=== PATIENT | female | born 1940 | race Caucasian/White ===

== ENCOUNTER 2023-03-03 06:02 | Observation (INO) | payer OTHER ==
[2023-01-22 10:09] LABS: Absolute Lymphocytes (CBC) 3.4 K/uL (0.7-4.9); Hematocrit 43.7 % (36.0-45.0); Lymphocytes % 37.9 % (15.3-44.8); MCV 90.9 fL (80-100); MPV 7.5 fL (7.6-11.3); Platelets 290 thou/uL (152-406); RBC Red Blood Cell Count 4.81 M/uL (3.86-4.86)
[2023-01-22 10:13] LABS: Protime INR 1.04
--- NOTE | 2023-01-22 10:22 | RAD REPORT ---
EXAM DESCRIPTION: Shey Hurst And Chantel (2 Views)01/22/2023 9:50 am CLINICAL HISTORY: Preop for knee surgery COMPARISON: 2017 FINDINGS: Mild left basilar lung opacities appear chronic. The lungs appear clear of acute infiltrate. The heart is normal size IMPRESSION: No acute abnormalities displayed
[2023-01-22 10:24] LABS: Potassium 3.8 mEq/L (3.5-5.1)
[2023-01-22 10:51] LABS: Calcium Oxalate Crystals- Ur Few /HPF (None Seen); Specific Gravity 1.019 (1.005-1.030); Urine Bacteria None Seen /HPF (<20); Urine Bilirubin NEGATIVE (Negative); Urine Blood 3+ (OVER) (Negative); Urine Clarity Extremely Turbid (Clear); Urine Color Light-Orange (Yellow); Urine Glucose NEGATIVE (Negative); Urine Mucus 3+ /HPF (None Seen); Urine Protein 1+ (Negative); Urine RBC >50 /HPF (None Seen); Urine Urobilinogen Normal (Normal)
[2023-03-01 09:28] LABS: Absolute Lymphocytes (CBC) 3.4 K/uL (0.7-4.9); Hematocrit 41.7 % (36.0-45.0); Lymphocytes % 43.1 % (15.3-44.8); MCV 90.6 fL (80-100); MPV 7.3 fL (7.6-11.3); Platelets 266 thou/uL (152-406); RBC Red Blood Cell Count 4.61 M/uL (3.86-4.86)
[2023-03-01 09:32] LABS: Protime INR 0.97
[2023-03-03] MEDS ORDERED: propofoL 200 MG/20 ML VIAL IV ONE (06:23)
[2023-03-03] MEDS ORDERED: KETAMINE HCL IN 0.9 % NACL 50 MG/5 ML SYRINGE IV ONE (06:23)
[2023-03-03] MEDS ORDERED: FENTANYL CITR 100 MCG/2 ML ONE (06:23)
[2023-03-03] MEDS ORDERED: MIDAZOLAM HCL 2 MG/2 ML INJ ONE (06:23)
[2023-03-03] MEDS ORDERED: LIDOCAINE 2% MPF 5 ML VIAL ONE ×3 (06:23→08:23)
[2023-03-03] MEDS ORDERED: ONDANSETRON 4 MG/2 ML VIAL ONE (06:24)
[2023-03-03] MEDS ORDERED: EPINEPHRINE/PF 1 MG/ML AMP ONE (06:30)
[2023-03-03] MEDS ORDERED: dexAMETHasone 4 MG/ML VIAL ONE (06:31)
[2023-03-03] MEDS ORDERED: BUPIVACAINE 0.25% PF 30 ML VIAL ONE ×2 (06:31→07:19)
[2023-03-03] MEDS ORDERED: CEFAZOLIN SODIUM 2 GM/VIAL ONE ×2 (06:33→06:35)
[2023-03-03] MEDS ORDERED: CELECOXIB 100 MG CAPSULE ONE (06:33)
[2023-03-03] MEDS ORDERED: Oxycodone HCl/Acetaminophen 1 TAB TAB ONE (06:34)
[2023-03-03] MEDS ORDERED: GABAPENTIN 100 MG CAP ONE (06:34)
[2023-03-03] MEDS ORDERED: ACETAMINOPHEN 500 MG TAB ONE (06:35)
[2023-03-03] MEDS ORDERED: Ringers Lactate 1,000 ML IV ONE ×2 (06:35→08:53)
[2023-03-03] MEDS ORDERED: DEXMEDETOMIDINE HCL 200 MCG/2 ML VIAL ONE (06:51)
[2023-03-03] MEDS ORDERED: TRANEXAMIC ACID 1,000 MG/10 ML VIAL IV ONE (07:25)
[2023-03-03] MEDS ORDERED: MAGNESIUM SULFATE 1 gm IVPB 1 GM/100 ML BAG IV ONE (08:00)
[2023-03-03] MEDS ORDERED: KETOROLAC 30 MG/ML INJ ONE (09:52)
[2023-03-03] MEDS ORDERED: EPHEDRINE SULF 50 MG/ML VIAL ONE (09:57)
--- NOTE | 2023-03-03 10:37 | P.BOP ---
Preoperative diagnosis: left knee osteoarthritis Postoperative diagnosis: same Primary procedure: left total knee arthroplasty [employer] Lab[employer]: NONE,NONE Estimated blood loss: 40 cc Specimen: left knee bone remnants Findings: see dictation Anesthesia: General Complications: None Implants: [employer] Person[employer] 9 CR femur, E tibia, 29 patella, 11 CR poly Fluids & blood products: per anesthesia record; TT: 71 mins @ 300 mmHg Transferred to: Recovery Room Condition: Good
[2023-03-03] MEDS ORDERED: DOCUSATE NA 100 MG CAP PO PRN (10:40)
[2023-03-03] MEDS ORDERED: ACETAMINOPHEN 325 MG TABLET PO PRN (10:40)
[2023-03-03] MEDS ORDERED: TRAMADOL HCL 50 MG TAB PO PRN (10:44)
[2023-03-03] MEDS: HYDROMORPHONE HCL 1 MG/ML INJ ONE ×2 (11:25→11:30)
--- OUTSIDE RECORDS SUMMARY | 2023-03-03 11:26 | XMS REPORT | Continuity of Care Document ---
:1940 Author Organization [facility] t Address [address] [facility] [address] [place] [address] Care Team Providers Name Role Phone GERHARD MARTINEZ Primary Care Physician Unavailable Gerhard Martinez Attending Clinician Unavailable Malorie Milton Attending Clinician Unavailable Phillip Kent Attending Clinician OLEKSANDR JO Attending Clinician Unavailable Oleksandr Cardenas Attending Clinician LESLEE MCCARTY Attending Clinician Unavailable Leslee Mccarty DO Attending Clinician LESLEE MCCARTY Admitting Clinician Unavailable Payers Payer Name Policy Type Policy Number Effective Date Expiration Date S sariah AET[employer] MANAGED [id number] 2020 MEDICARE 00:00:00 PPO-EULALIO AETNA MEDICARE C1 [id number] 2016 [facility] Spi rit 00:00:00 [facility] Problems Condition Condition Condition Status Onset Resolution Last Treating Co mments Source Name Details Category Date Date Treatment Clinician Date [id number] Primary Problem Comm on osteoarthr Spirit itis of - [facility]I left knee [facility] Cough Cough Problem Active 2022-03-08 Memor ia (finding) (finding) 21:45:29 l Active Kieran Problem 03/08/2022 [facility] Hyperlipid Problem Active 2022-03-08 M jeyria emia Hyperlipid 21:45:29 l (disorder) emia Jose Antonio n (disorder) Active Problem 03/08/2022 [facility] Tinnitus Tinnitus Problem Active 2022-03-08 Memoria (finding) (finding) 21:45:29 l Active [place] Problem 03/08/2022 [facility] Vertigo Vertigo Problem Active 2022-03-08 Me moria (finding) (finding) 21:45:29 l Active [place] Problem 03/08/2022 [facility] Allergies, Adverse Reactions, Alerts Allergy Allergy Status Severity Reaction(s) Onset Inactive Treating Comm ents Source Name Type Date Date Clinician No Known No Known Active Memori a Medicati Medicati l on on [place] Allergie Allergie s s NO KNOWN Drug Active Univers ALLERGIE Class ity of S [facility] Social History Social Habit Start Date Stop Date Quantity Comments Source Exposure to Not sure [facility] SARS-CoV-2 (event) Medica l Branch History of Tobacco [facility] - [facility] Use [facility] Sex Assigned At Common Sp chava - [facility] Social History 2021-04-21 2021-04-21 [facility] Victor Hugo tenorio 15:54:06 15:54:06 Smoking Status Start Date Stop Date Source Unknown if ever smoked [facility] Never Smoker [facility] Medications Ordered Filled Start Stop Current Ordering Indication Dosage Frequency Signature Comments Components Source Medication Medication Date Date Medication? Clinician (SIG) Name Name Kenalog Kenalog No 40mg Common (Triamcinol (Triamcinol 1-05 S pirit one) one) 00:00: - [facility] Bupivicaine Bupivicaine No 2.5mg Common [place] 1-05 Spirit 00:00: - [facility] Naropin Naropin No 5mg Common (Ropivacain (Ropivacain 9-12 S pirit e HCl) e HCl) 00:00: - CHI 00 [facility] Kenalog Kenalog 2021-0 No 40mg Common (Triamcinol (Triamcinol 9-12 S pirit one) one) 00:00: - [facility]I 00 [facility] Naropin Naropin 2021-0 No 5mg Common (Ropivacain (Ropivacain 9-12 S pirit e HCl) e HCl) 00:00: - [facility]I 00 [facility] Kenalog Kenalog 2021-0 No 40mg Common (Triamcinol (Triamcinol 9-12 S pirit one) one) 00:00: - CHI 00 [facility] Bupivicaine Bupivicaine 2021-0 No 2.5mg Common [place] Huddy 5-09 Spirit 00:00: - [facility]I 00 [facility] Kenalog Kenalog 2021-0 No 40mg Common (Triamcinol (Triamcinol 5-09 S pirit one) one) 00:00: - [facility]I 00 [facility] Kenalog Kenalog 2021-0 No 40mg Common (Triamcinol (Triamcinol 5-09 S pirit one) one) 00:00: - [facility]I 00 [facility] Bupivicaine Bupivicaine 2021-0 No 2.5mg Common [place]ud[place] 5-09 Spirit 00:00: - CHI 00 [facility] Kenalog Kenalog 2021-0 No 40mg Common (Triamcinol (Triamcinol 5-09 S pirit one) one) 00:00: - [facility]I 00 [facility] Bupivicaine Bupivicaine 2021-0 No 2.5mg Common [place] 5-09 Spirit 00:00: - CHI 00 [facility] Bupivicaine Bupivicaine 2021-0 No 2.5mg Common [place]dy Huddy 2-03 Spirit 00:00: - [facility]I 00 [facility] Kenalog Kenalog 2021-0 No 40mg Common (Triamcinol (Triamcinol 2-03 S pirit one) one) 00:00: - [facility]I 00 [facility] Bupivicaine Bupivicaine 2022-0 No 2.5mg Common [place] Huddy 2-03 Spirit 00:00: - [facility]I 00 [facility] Kenalog Kenalog 2021-0 No 40mg Common (Triamcinol (Triamcinol 2-03 S pirit one) one) 00:00: - [facility]I 00 [facility] Bupivicaine Bupivicaine 2021-0 No 2.5mg Common [place] Hud[place] 2-03 Spirit 00:00: - [facility]I 00 [facility] Kenalog Kenalog 2021-0 No 40mg Common (Triamcinol (Triamcinol 2-03 S pirit one) one) 00:00: - [facility]I 00 [facility] Kenalog Kenalog 2021-0 No 40mg Common (Triamcinol (Triamcinol 2-03 S pirit one) one) 00:00: - [facility]I 00 [facility] Bupivicaine Bupivicaine 2021-0 No Common [place] Hud[place] 2-03 Spirit 00:00: - [facility] cefTRIAXone 2020-07- No 1000mg 1,000 mg, Univers (ROCEPHIN) 07-11 IV ity of 1,000 mg in 13:15: 12:58 [place], [place] NaCl 0.9% 00 :00 ONCE, 1 Medical (NS) 50 mL dose, On Branc h MINI-BAG [place] 05/11/21 at 0715, Administer over 30 Minutes, 50 mL
Reas on for Anti-Infec tive: Empiric Therapy for Suspected Infection< br>Empiric Therapy Site: Urine
D uration of therapy: 72 hours dexamethaso 2020-07- No 10mg 10 mg, Uni vers ne 07-11 Slow IV ity of (DECADRON 13:00: 11:52 [place], [place] PHOSPHATE) 00 :00 ONCE, 1 Medica l injection dose, On Branch 10 mg [place] 05/11/21 at 0700, Routine ondansetron 2020-07- No 4mg 4 mg, Slow Univers (ZOFRAN 07-11 IV Push, ity of (PF)) 13:00: 11:51 ONCE, 1 [place] injection 4 00 :00 dose, On Medi peter mg [facility] 05/11/21 at 0700, MAKAYLA cephALEXin 2020-07- No [id number] 500mg Take 1 Univers (KEFLEX) 07-11 11-15 capsule by ity of 500 mg 00:00: 05:59 mouth 3 [place] capsule 00 :00 (three) Medical times Branch daily for 7 days. meclizine 2020-07 Yes 25 mg = 1 Mem oria 25 mg oral 1-04 tab, PO, l tablet 15:11: PRN, PRN [place] 00 Dizziness, X 30 day, # 15 tab, 1 Refill(s), [facility]acy: [id number], 165.1, cm, 04/21/21 11:03:00 CDT, Height, 86.818, kg, 04/21/21 11:03:00 CDT, Weight [facility] 2020-07 No 40mg Common (Triamcinol (Triamcinol 0-19 S pirit one) one) 00:00: - [facility] Bupivicaine Bupivicaine 2020-07 No 2.5mg Common H[place]dy Huddy 0-19 Spirit [facility] No 40mg Common (Triamcinol (Triamcinol 0-19 S pirit one) one) 00:00: - [facility] Bupivicaine Bupivicaine 2020-07 No 2.5mg Common [place] Huddy 0-19 Spirit 00:00: - [facility] Kenalog Kenalog 2020-07 No 40mg Common (Triamcinol (Triamcinol 0-19 S pirit one) one) 00:00: - [facility] Bupivicaine Bupivicaine 2020-07 No 2.5mg Common [place] Huddy 0-19 Spirit 00:00: - [facility] Kenalog Kenalog 2020-07 No 40mg Common (Triamcinol (Triamcinol 0-19 S pirit one) one) 00:00: - [facility] Bupivicaine Bupivicaine 2020-07 No Common [place] Huddy 0-19 Spirit 00:00: - [facility] Multiple 2020-07 Yes 1 cap, PO, Mem oria Vitamins 0-18 Daily, # l oral 16:12: 30 cap, 0 [place] capsule 00 Refill(s) Acidophilus 2020-07 Yes PO, Daily, Memoria Probiotic 0-18 0 l Blend 16:11: Refill(s) [place] 00 [place]-3 2020-07 Yes 0 Memoria oral 0-18 Refill(s) l capsule 16:09: [place] 00 Vitamin D3 2020-07 Yes 0 Memoria 0-18 Refill(s) l 16:09: [place] 00 Glucosamine 2020-07 Yes 0 Memori a & 0-18 Refill(s) l Chondroitin 16:08: Jose Antonio n with MSM 00 rosuvastati 2020-07 Yes 10 mg = 1 M emoria n 10 mg 0-18 tab, PO, l oral tablet 16:04: Bedtime, # Kieran 00 30 tab, 0 Refill(s) gemfibrozil 2020-07 Yes 600 mg = 1 Memoria 600 mg oral 0-18 tab, PO, l tablet 16:04: BID, # 180 Taylor nn 00 tab, 0 Refill(s) Bupivicaine Bupivicaine No 2.5mg Common [place] Hud[place] 5-10 Spirit 00:00: - [facility] No 40mg Common (Triamcinol (Triamcinol 5-10 S pirit one) one) 00:00: - [facility] Kenalog No 40mg Common (Triamcinol (Triamcinol 5-10 S pirit one) one) 00:00: - [facility] Bupivicaine Bupivicaine No 2.5mg Common [place]dy Huddy 5-10 Spirit 00:00: - [facility] No 40mg Common (Triamcinol (Triamcinol 5-10 S pirit one) one) 00:00: - [facility] Bupivicaine Bupivicaine 0 No 2.5mg Common [place] Huddy 5-10 Spirit 00:00: - [facility] Bupivicaine Bupivicaine 2021-0 No Common H[place]dy Huddy 5-10 Spirit 00:00: - [facility]I 00 [facility] Kenalog Kenalog 2020-0 No 40mg Common (Triamcinol (Triamcinol 5-10 S pirit one) one) 00:00: - [facility]I 00 [facility] Gel-One Gel-One 2020-0 No 3mg Common 4-29 Spirit 00:00: - [facility]I 00 [facility] Bupivicaine Bupivicaine 2020-0 No 2.5mg Common [place]ud[place] 4-29 Spirit 00:00: - [facility]I 00 [facility] Gel-One Gel-One 2020-0 No 3mg Common 4-29 Spirit 00:00: - [facility]I 00 [facility] Bupivicaine Bupivicaine 2020-0 No 2.5mg Common [place] Hud[place] 4-29 Spirit 00:00: - [facility]I 00 [facility] Gel-One Gel-One 2020-0 No 3mg Common 4-29 Spirit 00:00: - [facility]I 00 [facility] Bupivicaine Bupivicaine 2020-0 No 2.5mg Common [place] Hud[place] 4-29 Spirit 00:00: - [facility]I 00 [facility] Gel-One Gel-One 2020-0 No 3mg Common 4-29 Spirit 00:00: - CHI 00 [facility] Bupivicaine Bupivicaine 2020-0 No Common [place] Hud[place] 4-29 Spirit 00:00: - [facility]I 00 [facility] traMADol traMADol 2020-0 No 1{table traMADol HCl 50 MG HCl 50 MG 3- t_as_ne HCl 50 MG 00:00: eded} 00 traMADol traMADol 2020-0 No 1{table traMADol HCl 50 MG HCl 50 MG 3- t_as_ne HCl 50 MG 00:00: eded} 00 traMADol traMADol 2020-0 No 1{table traMADol HCl 50 MG HCl 50 MG 3-29 t_as_ne HCl 50 MG 00:00: eded} 00 traMADol traMADol 2020-0 No 1{table traMADol HCl 50 MG HCl 50 MG 3-29 t_as_ne HCl 50 MG 00:00: eded} 00 traMADol traMADol 2020-0 No 1{table traMADol HCl 50 MG HCl 50 MG 3-29 t_as_ne HCl 50 MG 00:00: eded} 00 Bupivicaine Bupivicaine 2020-1 No 2.5mg Common [place] 1-10 Spirit 00:00: - [facility]I 00 [facility] Kenalog Kenalog 2020-1 No 40mg Common (Triamcinol (Triamcinol 1-10 S pirit one) one) 00:00: - [facility]I 00 [facility] Bupivicaine Bupivicaine 2020-1 No 2.5mg Common [place] Huddy 1-10 Spirit 00:00: - [facility]I 00 [facility] Kenalog Kenalog 2020-1 No 40mg Common (Triamcinol (Triamcinol 1-10 S pirit one) one) 00:00: - [facility]I 00 [facility] Bupivicaine Bupivicaine 2020-1 No 2.5mg Common [place] Huddy 1-10 Spirit 00:00: - [facility]I 00 [facility] Kenalog Kenalog 2020-1 No 40mg Common (Triamcinol (Triamcinol 1-10 S pirit one) one) 00:00: - [facility]I 00 [facility] Bupivicaine Bupivicaine 2020-1 No Common H[place]dy Huddy 1-10 Spirit 00:00: - CHI 00 [facility] Kenalog Kenalog 2020-1 No 40mg Common (Triamcinol (Triamcinol 1-10 S pirit one) one) 00:00: - [facility]I 00 [facility] Calcium Calcium No Calcium Doxycycline Doxycycline No Doxycyclin Hyclate Hyclate e Hyclate Rosuvastati Rosuvastati No Rosuvastat n Calcium n Calcium in Calcium LORazepam LORazepam No LORazepam Glucosamine Glucosamine No Glucosamin e Vitamin D3 Vitamin D3 No Vitamin D3 Gemfibrozil Gemfibrozil No Gemfibrozi l Rosuvastati Rosuvastati No Rosuvastat n Calcium n Calcium in Calcium Doxycycline Doxycycline No Doxycyclin Hyclate Hyclate e Hyclate [place] 3 [place] 3 No [place] 3 LORazepam LORazepam No LORazepam Calcium Calcium No Calcium Probiotic Probiotic No Probiotic Glucosamine Glucosamine No Glucosamin e [place] 3 [place] 3 No [place] 3 Probiotic Probiotic No Probiotic Rosuvastati Rosuvastati No Rosuvastat n Calcium n Calcium in Calcium Calcium Calcium No Calcium Glucosamine Glucosamine No Glucosamin e Gemfibrozil Gemfibrozil No Gemfibrozi l LORazepam LORazepam No LORazepam Doxycycline Doxycycline No Doxycyclin Hyclate Hyclate e Hyclate Vitamin D3 Vitamin D3 No Vitamin D3 Glucosamine Glucosamine No Glucosamin e Doxycycline Doxycycline No Doxycyclin Hyclate Hyclate e Hyclate Gemfibrozil Gemfibrozil No Gemfibrozi l Vitamin D3 Vitamin D3 No Vitamin D3 Probiotic Probiotic No Probiotic LORazepam LORazepam No LORazepam [place] 3 [place] 3 No [place] 3 Calcium Calcium No Calcium Rosuvastati Rosuvastati No Rosuvastat n Calcium n Calcium in Calcium Glucosamine Glucosamine No Glucosamin e Probiotic Probiotic No Probiotic Calcium Calcium No Calcium Rosuvastati Rosuvastati No Rosuvastat n Calcium n Calcium in Calcium Doxycycline Doxycycline No Doxycyclin Hyclate Hyclate e Hyclate Vitamin D3 Vitamin D3 No Vitamin D3 LORazepam LORazepam No LORazepam [place] 3 [place] 3 No [place] 3 Gemfibrozil Gemfibrozil No Gemfibrozi l Gemfibrozil Gemfibrozil No Gemfibrozi l Vitamin D3 Vitamin D3 No Vitamin D3 Probiotic Probiotic No Probiotic [place] 3 [place] 3 No [place] 3 Immunizations Ordered Immunization Filled Immunization Date Status Commen ts Source Name Name Bupivicaine [place] Bupivicaine Huddy 2021-04-22 Completed [facility] 10:19:00 - [facility] Kenalog Kenkellee 2021-04-22 Completed [facility] (Triamcinolone) (Triamcinolone) 10:19:00 - [facility] Bupivicaine [place]uddy Bupivicaine Huddy 2020-11-11 Completed [facility] 09:03:00 - [facility] Kenalog Kenalog 2020-11-11 Completed [facility] (Triamcinolone) (Triamcinolone) 09:02:00 - [facility] Gel-One Gel-One 2020-10-31 Completed [facility] 11:20:00 - [facility] Bupivicaine Huddy Bupivicaine Huddy 2020-10-31 Completed [facility] 11:16:00 - [facility] Bupivicaine Huddy Bupivicaine Huddy 2020-05-14 Completed [facility] 10:12:00 - [facility] Kenalog Kenalog 2020-05-14 Completed [facility] (Triamcinolone) (Triamcinolone) 10:12:00 - CH I [facility] Vital Signs Vital Name Observation Time Observation Value Comments Source height 2022-07-09 10:00:00 65.5 [in_i] Common S pirit - [facility] weight 2022-07-09 10:00:00 180 [lb_av] Common S pirit [facility] temperature 2022-07-09 10:00:00 97.4 [degF] Common S pirit [facility] bmi 2022-07-09 10:00:00 29.49 kg/m2 Common S pirit - [facility] blood pressure 2022-07-09 10:00:00 118 mm[Hg] [facility] - systolic [facility] blood pressure 2022-07-09 10:00:00 74 mm[Hg] [facility] - diastolic [facility] height 2022-03-16 10:00:00 65.5 [in_i] Common S pirit [facility] weight 2022-03-16 10:00:00 185 [lb_av] Common S pirit [facility] temperature 2022-03-16 10:00:00 98.3 [degF] [facility] bmi 2022-03-16 10:00:00 30.31 kg/m2 Common S pirit [facility] blood pressure 2022-03-16 10:00:00 126 mm[Hg] [facility] - systolic [facility] blood pressure 2022-03-16 10:00:00 64 mm[Hg] [facility] - diastolic [facility] height 2021-11-10 10:30:00 65.5 [in_i] Common S pirit - [facility] weight 2021-11-10 10:30:00 185 [lb_av] Common S pirit [facility] temperature 2021-11-10 10:30:00 97.2 [degF] Common S pirit [facility] bmi 2021-11-10 10:30:00 30.31 kg/m2 Common S pirit - [facility] blood pressure 2021-11-10 10:30:00 124 mm[Hg] [facility] - systolic [facility] blood pressure 2021-11-10 10:30:00 74 mm[Hg] [facility] - diastolic [facility] Systolic blood 2021-08-19 21:00:00 133 mm[Hg] Univer [facility]ity of [facility] Diastolic blood 2021-08-19 21:00:00 61 mm[Hg] Unive rsity of [facility] Heart rate 2021-08-19 21:00:00 65 /min [facility] Respiratory rate 2021-08-19 21:00:00 17 /min [facility] Oxygen saturation in 2021-08-19 21:00:00 99 /min [facility] Arterial blood by [facility] Pulse oximetry [place] Body temperature 2021-08-19 19:25:00 37 Jina [facility] Body weight 2021-08-19 19:25:00 68.04 kg [facility] height 2021-08-07 10:00:00 65.5 [in_i] [facility] weight 2021-08-07 10:00:00 191 [lb_av] [facility] temperature 2021-08-07 10:00:00 97.2 [degF] [facility] bmi 2021-08-07 10:00:00 31.3 kg/m2 Common S pirit [facility] blood pressure 2021-08-07 10:00:00 126 mm[Hg] [facility] - systolic [facility] blood pressure 2021-08-07 10:00:00 74 mm[Hg] [facility] - diastolic [facility] Systolic blood 2021-05-11 12:00:00 120 mm[Hg] Univer [facility] Diastolic blood 2021-05-11 12:00:00 61 mm[Hg] Unive rsity of [facility] Heart rate 2021-05-11 12:00:00 59 /min [facility] Respiratory rate 2021-05-11 12:00:00 10 /min [facility] Oxygen saturation in 2021-05-11 12:00:00 95 /min [facility] Arterial blood by [facility] Pulse oximetry [place] Body temperature 2021-05-11 11:36:00 36.61 Jina [facility] Body weight 2021-05-11 11:27:00 68.04 kg [facility] height 2021-04-22 09:45:00 65.5 [in_i] [facility] weight 2021-04-22 09:45:00 191.2 [lb_av] [facility] temperature 2021-04-22 09:45:00 97.3 [degF] [facility] bmi 2021-04-22 09:45:00 31.33 kg/m2 [facility] blood pressure 2021-04-22 09:45:00 118 mm[Hg] Common [facility] - systolic [facility] blood pressure 2021-04-22 09:45:00 72 mm[Hg] [facility] - diastolic [facility] Systolic (mm Hg) 2021-09-02 15:46:00 Harlan rial [place] Diastolic (mm Hg) 2021-09-02 15:46:00 Mem orial Kieran Heart Rate 2021-09-02 15:46:00 [facility] Kieran Respitory Rate 2021-09-02 15:46:00 Memori al [place]ieran Height 2021-09-02 15:46:00 162[facility] 2021-09-02 15:46:00 [facility] [place] BMI Calculated 2021-09-02 15:46:00 Memori al [place] Systolic (mm Hg) 2021-05-20 15:49:00 Harlan rial Kieran Diastolic (mm Hg) 2021-05-20 15:49:00 Mem orial Kieran Heart Rate 2021-05-20 15:49:00 [facility] [place] Respitory Rate 2021-05-20 15:49:00 Memori al Kieran Height 2021-05-20 15:49:00 162.56 cm [facility] [place] Weight 2021-05-20 15:49:00 [facility] [place]ieran BMI Calculated 2021-05-20 15:49:00 Nedraori al [place] Systolic (mm Hg) 2021-04-21 15:50:00 Harlan guadarrama Kieran Diastolic (mm Hg) 2021-04-21 15:50:00 Mem orial [place] Heart Rate 2021-04-21 15:50:00 [facility] [place] Respitory Rate 2021-04-21 15:50:00 Memori al Kieran Height 2021-04-21 15:50:00 165.1 cm [facility] [place] Weight 2021-04-21 15:50:00 [facility] [place] BMI Calculated 2021-04-21 15:50:00 Slava al [place]ieran Procedures Procedure Date / Time Performing Clinician Source Performed TROPONIN I 2021-08-19 20:36:00 Oleksandr Jo [facility] COMP. METABOLIC PANEL 2021-08-19 20:36:00 Oleksandr Jo [facility] ([id number]) [facility] Branch CBC WITH DIFF 2021-08-19 20:36:00 Oleksandr Jo [facility] URINALYSIS 2021-08-19 20:32:00 [facility] CONSENT/REFUSAL FOR 2021-08-19 19:24:57 Doctor Unassigned, No Un [facility] DIAGNOSIS AND TREATMENT Name Medical Branch OR RESUPERF WND FACE 2021-05-11 12:43:02 Leslee Mccarty [facility] 2.5CM OR LESS [facility] Branch XR CHEST 1 VW 2021-05-11 12:24:44 Singer Leslee [facility] CT HEAD WO CONTRAST 2021-05-11 12:24:10 Leslee Mccarty [facility] TROPONIN I 2021-05-11 11:43:00 Singer Lelsee [facility] COMP. METABOLIC PANEL 2021-05-11 11:43:00 Leslee Mccarty [facility] ([id number]) [facility] CBC WITH DIFF 2021-05-11 11:43:00 Singer Leslee [facility] URINALYSIS 2021-05-11 11:43:00 Leslee Mccarty o f [facility] Gallbladder operation [facility] Encounters Start End Encounter Admission Attending Care Care Encounter Source Date/Time Date/Time Type Type Clinicians Facility Department ID 2023-01-27 Outpatient Martinez, STLMLC STLMLC [id number] Common 14:07:00 [facility] [address] Spir [facility] 2022-11-13 Outpatient Martinez, STLMLC STLMLC [id number] Common 09:18:00 [facility] [address] Spir it [facility] 2022-11-12 Outpatient Pima, STLMLC STLMLC [id number] Common 14:36:01 Malorie [facility] 2022-07-09 Outpatient [place], STLMLC STLMLC [id number] Common 16:40:01 Malorie [address] [facility] 2022-03-16 Outpatient [place], STLMLC STLMLC [id number] Common 11:54:01 Malorie [facility] 2021-08-07 Outpatient [place], STLMLC STLMLC [id number] Common 10:03:01 Malorie [facility] 2021-07-30 Outpatient [place], STLMLC STLMLC [id number] Common 13:01:42 Malorie 08507 [facility] 2021-07-30 Outpatient [place], STLMLC STLMLC [id number] Common 13:01:07 Malorie 57275 [facility] 2021-07-30 Outpatient [place], STLMLC STLMLC [id number] Common 12:58:52 Malorie 15839 [facility] 2021-07-30 Outpatient [place]ima, STLMLC STLMLC [id number] Common 12:57:01 Malorie 35447 [facility] 2021-07-30 Outpatient [place], STLMLC STLMLC [id number] Common 12:52:41 Malorie 09759 [facility] 2021-07-30 Outpatient [place], STLMLC STLMLC [id number] Common 12:03:38 Malorie [address] [facility] 2022-07-09 2022-07-09 OFFICE STLMLC STLMLC [id number] Co mmon 00:00:00 00:00:00 VISIT Spirit ESTAB PT - CHI LEVEL 4 [facility] 2022-03-16 2022-03-16 OFFICE STLMLC STLMLC [id number] Co mmon 00:00:00 00:00:00 VISIT Spirit ESTAB PT - CHI LEVEL 4 [facility] 2022-03-06 2022-03-06 Ambulatory nullFlavo MNA [id number] Memoria 15:00:00 15:00:00 Pre-Reg r Neurology 05 l Baltazar Alcaraz 2022-03-06 2022-03-06 Outpatient MHIE MHIE [id number] Memoria 10:00:00 10:00:00 05 valencia Kieran 2022-03-06 2022-03-06 Outpatient VEE KentMISCHER MHMISCHER [id number] 10:00:00 10:00:00 Phillip Cheryl Cezar 2021-11-10 2021-11-10 OFFICE STLMLC STLMLC [id number] Co mmon 00:00:00 00:00:00 VISIT Spirit ESTAB PT - CHI LEVEL 4 [facility] 2021-09-02 2021-09-03 Outpatient nullFlavo MNA [id number] Memoria 16:15:00 05:59:59 r Neurology 04 l Harvey Kieran 2021-09-02 2021-09-02 Outpatient VEE KentMISCHER MHMISCHER [id number] 10:15:00 23:59:59 Phillip Kay Cezar 2021-09-02 2021-09-02 Outpatient MHIE MHIE [id number] Memoria 10:15:00 10:15:00 04 valencia Kieran 2021-08-19 2021-08-19 Emergency X DEYSI TXDIO ERT [id number] Univers 13:27:00 17:02:[address] [facility] 2021-08-19 2021-08-19 Emergency Deysi TXDIO [id number] [facility] 13:27:00 17:02:00 Oleksandr ANNE [id number] [facility] [id number] [facility] [id number] [address] 2021-08-07 2021-08-07 [facility] [id number] Co mmon 00:00:00 00:00:00 VISIT Spirit ESTAB PT - CHI LEVEL 4 [facility] 2021-05-20 2021-05-21 Outpatient nullFlavo MNA [id number] Memoria 16:00:00 05:59:59 r Neurology 02 l Harvey Kieran 2021-05-20 2021-05-20 Outpatient Donte MHMISCHER MHMISCHER 004 [id number] 10:00:00 23:59:59 Phillip 02 Cezar 2021-05-20 2021-05-20 Outpatient MHIE MHIE [id number] Memoria 10:00:00 10:00:00 02 valencia Alcaraz 2021-05-11 2021-05-11 Emergency [facility] E[facility] [id number] [facility] 05:20:00 08:09:[address] [facility] 2021-05-11 2021-05-11 [facility] [id number] Univers 05:20:00 08:09:00 Leslee ANNE 350.1.13.10 i ty of [place] 4.2.7.2.686 [facility] [id number] [address] 2021-05-08 2021-05-09 Outpatient nullFlavo MNA [id number] Memoria 14:45:00 04:59:59 r Neurology 03 valencia Alcaraz 2021-05-08 2021-05-08 Outpatient VEE KentMISCHER MHMISCHER [id number] 09:45:00 23:59:59 Phillip 03 Cezar 2021-05-08 2021-05-08 Outpatient MHIE MHIE [id number] Memoria 09:45:00 09:45:00 03 valencia Alcaraz 2021-04-25 2021-04-25 Ambulatory nullFlavo MNA [id number] Memoria 15:45:00 15:45:00 Pre-Reg r Neurology 00 l Baltazar Alcaraz 2021-04-25 2021-04-25 Outpatient MHIE MHIE [id number] Memoria 10:45:00 10:45:00 00 valencia Alcaraz 2021-04-25 2021-04-25 Outpatient DonteVEEMISCHER MHMISCHER [id number] 10:45:00 10:45:00 Phillip 00 Cezar 2021-04-21 2021-04-22 Outpatient nullFlavo MNA [id number] Memoria 15:45:00 04:59:59 r Neurology 01 valencia Alcaraz 2021-04-22 2021-04-22 OFFICE STLMLC STLMLC [id number] Co mmon 00:00:00 00:00:00 VISIT [facility] 4 [facility] 2021-04-21 2021-04-21 Outpatient Donte, MHMISCHER MHMISCHER [id number] 10:45:00 23:59:59 Phillip Cezar 2021-04-21 2021-04-21 Outpatient MHIE MHIE [id number] Memoria 10:45:00 10:45:00 01 valencia Alcaraz 2021-01-14 2021-01-14 Outpatient STLMLC STLMLC [id number] Common 00:00:00 00:00:00 [facility] 2020-11-12 2020-11-12 Outpatient STLMLC STLMLC [id number] Common 00:00:00 00:00:00 [facility] 2020-11-11 2020-11-11 Outpatient STLMLC STLMLC [id number] Common 00:00:00 00:00:00 [facility] 2020-11-11 2020-11-11 Outpatient STLMLC STLMLC [id number] Common 00:00:00 00:00:00 [facility] 2020-11-04 2020-11-04 Outpatient STLMLC STLMLC [id number] Common 00:00:00 00:00:00 [facility] 2020-10-31 2020-10-31 Outpatient STLMLC STLMLC [id number] Common 00:00:00 00:00:00 [facility] 2020-10-07 2020-10-07 Outpatient STLC STLC [id number] Common 00:00:00 00:00:00 [facility] 2020-09-30 2020-09-30 Outpatient STLC STLC [id number] Common 00:00:00 00:00:00 [facility] 2020-09-30 2020-09-30 Outpatient STLC STLC [id number] Common 00:00:00 00:00:00 [facility] 2020-05-14 2020-05-14 Outpatient STLC STLC [id number] Common 00:00:00 00:00:00 [facility] Results Test Description Test Time Test Comments Results Result Comments Source CBC WITH DIFF 2021-08-19 21:29:13 Test Item Value Reference Range Interpretation Comme nts WBC (test code = 6690-2) See_Comment [A utomated message] The system which ge nerated this result transmit aj reference range: 4.30 - 1 1.10 10*3/?L. The reference r luis was not used to interpr et this result as normal/abnor mal. RBC (test code = 789-8) See_Comment [Au tomated message] The system which ge nerated this result transmit aj reference range: 3.93 - 5 .25 10*6/?L. The reference r luis was not used to interpr et this result as normal/abnor mal. HGB (test code = 718-7) 14.5 g/dL 11.6-15.0 HCT (test code = 4544-3) 42.2 % 35.7-45.2 MCV (test code = 787-2) 91.3 fL 80.6-95.5 MCH (test code = 785-6) 31.4 pg 25.9-32.8 MCHC (test code = 786-4) 34.4 g/dL 31.6-35.1 RDW-SD (test code = 63881-1) 38.8 fL 39.0-49.9 L RDW-CV (test code = 788-0) 11.6 % 12.0-15.5 L PLT (test code = 777-3) See_Comment [Au tomated message] The system which ge nerated this result transmit aj reference range: 166 - 35 8 10*3/?L. The reference range was not used to interpret th is result as normal/abnormal . MPV (test code = 40590-0) 9.5 fL 9.5-12.9 NRBC/100 WBC (test code = See_Comment [ Automated message] The 3075653425) system which ge nerated this result transmit aj reference range: 0.0 - 10 .0 /100 WBCs. The reference r luis was not used to interpr et this result as normal/abnor mal. NRBC x10^3 (test code = <0.01 See_Comment [Au tomated message] The 4518065763) system which ge nerated this result transmit aj reference range: 10*3/?L. The reference range was not u sed to interpret this result as normal/abnormal . GRAN MAT (NEUT) % (test code 43.1 % = 770-8) IMM GRAN % (test code = 0.10 % 4808779042) LYMPH % (test code = 736-9) 46.7 % MONO % (test code = 5905-5) 6.6 % EOS % (test code = 713-8) 3.3 % BASO % (test code = 706-2) 0.2 % GRAN MAT x10^3(ANC) (test 3.73 10*3/uL 1.88-7.09 code = 1499067316) IMM GRAN x10^3 (test code = <0.03 0.00-0.06 8291669872) LYMPH x10^3 (test code = 4.04 10*3/uL 1.32-3.29 H 731-0) MONO x10^3 (test code = 0.57 10*3/uL 0.33-0.92 742-7) EOS x10^3 (test code = 0.29 10*3/uL 0.03-0.39 711-2) BASO x10^3 (test code = <0.03 0.01-0.07 704-7) Lab Interpretation (test Abnormal code = 63735-8) [id number]45 Test Item Value Reference Interpretation Comments Range TROPONIN I (test 0.002 ng/mL See_Comment [Automated code = 4966530286) message] The system which generated this result transmitted reference range : <=0.034. The reference range was not used to interpret this result as normal/abnormal . HIRA (test code = Reference (Normal) HIRA) Range (defined by the 99th percentile reference limit): <= 0.034 ng/mL Note: Cardiac troponin begins to rise 3-4 hours after the onset of ischemia. Repeat in 4-6 hours if the sample was drawn within 3-4 hours of the onset of the symptom and found normal. Diagnosis of myocardial injury is made with acute changes in cTn concentrations with at least one serial sample above the 99th percentile upper reference limit (URL), taken together with the patient's clinical presentation. Biotin has been reported to cause a negative bias, interpret results relative to patient's use of biotin. Lab Interpretation Normal (test code = 93476-5) [facility]. METABOLIC PANEL ([id number])2021-08-19 20:58:22 Test Item Value Reference Range Interpretation Comments NA (test code = 139 mmol/L 135-145 1523712727) K (test code = 4.0 mmol/L 3.5-5.0 7962631303) CL (test code = 107 mmol/L 98-108 7253730683) CO2 TOTAL (test code = 29 mmol/L 23-31 5039737631) AGAP (test code = 2-16 8615667150) BUN (test code = 15 mg/dL 7-23 6474462570) GLUCOSE (test code = 108 mg/dL 70-110 4430931781) CREATININE (test code = 1.22 mg/dL 0.50-1.04 H 2739541120) TOTAL BILI (test code = 0.7 mg/dL 0.1-1.3 5914912084) CALCIUM (test code = 9.3 mg/dL 8.6-10.6 2095573823) T PROTEIN (test code = 7.1 g/dL 6.3-8.2 9510147934) ALBUMIN (test code = 4.4 g/dL 3.5-5.0 0369387987) ALK PHOS (test code = 81 U/L 34-122 0238329454) ALTv (test code = 21 U/L 1742-6) AST(SGOT) (test code = 33 U/L 13-40 0218183828) eGFR (test code = mL/min/1.73m2 6870456368) HIRA (test code = HIRA) Association of Glomerular Filtration Rate (GFR) and Staging of Kidney Disease* + --+ --+ ------+| GFR (mL/min/1.73 m2) ?| With Kidney Damage ?| ?Without Kidney Damage+ --------+ --------+ +| ?>90 ?| ?Stage one ?| ? Normal ?+ ---+ ---+ -------+| ?60-89 ?| ?Stage two ?| ? Decreased GFR ? + --+ --+ ------+| ?30-59 ?| ?Stage three ?| ? Stage three ? + --+ --+ ------+| ?15-29 ?| ?Stage four ? | ? Stage four ?+ ---+ ---+ -------+| ?<15 (or dialysis) ? ?| ?Stage five ? | ? Stage five ?+ ---+ ---+ -------+ *Each stage assumes the associated GFR level has been in effect for at least three months. ?Stages 1 to 5, with or without kidney disease, indicate chronic kidney disease. Notes: Determination of stages one and two (with eGFR >59mL/min/1.73 m2) requires estimation of kidney damage for at least three months as defined by structural or functional abnormalities of the kidney, manifested by either:Pathological abnormalities or Markers of kidney damage (including abnormalities in the composition of the blood or urine or abnormalities in imaging tests). Lab Interpretation Abnormal (test code = 40613-7) [id number] 12:35:46 Test Item Value Reference Interpretation Comments Range TROPONIN I (test <0.012 See_Comment [Automated code = 8657566466) message] The system which generated this result transmitted reference range : <=0.034 ng/mL. The reference range was not used to interpret this result as normal/abnormal . HIRA (test code = Reference (Normal) HIRA) Range (defined by the 99th percentile reference limit): <= 0.034 ng/mL Note: Cardiac troponin begins to rise 3-4 hours after the onset of ischemia. Repeat in 4-6 hours if the sample was drawn within 3-4 hours of the onset of the symptom and found normal. Diagnosis of myocardial injury is made with acute changes in cTn concentrations with at least one serial sample above the 99th percentile upper reference limit (URL), taken together with the patient's clinical presentation. Biotin has been reported to cause a negative bias, interpret results relative to patient's use of biotin. Lab Interpretation Normal (test code = 18982-2) [facility]. METABOLIC PANEL ([id number])2021-05-11 12:23:43 Test Item Value Reference Range Interpretation Comments NA (test code = 140 mmol/L 135-145 7753458619) K (test code = 4.2 mmol/L 3.5-5.0 7459179119) CL (test code = 105 mmol/L 98-108 2080972716) CO2 TOTAL (test code = 29 mmol/L 23-31 9588365968) AGAP (test code = 2-16 6149997981) BUN (test code = 12 mg/dL 7-23 4696627226) GLUCOSE (test code = 114 mg/dL 70-110 H 4236514708) CREATININE (test code = 0.94 mg/dL 0.50-1.04 1336668780) TOTAL BILI (test code = 0.9 mg/dL 0.1-1.1 7603655266) CALCIUM (test code = 9.9 mg/dL 8.6-10.6 3621456056) T PROTEIN (test code = 7.4 g/dL 6.3-8.2 5716585850) ALBUMIN (test code = 4.4 g/dL 3.5-5.0 6357355665) ALK PHOS (test code = 80 U/L 34-122 0713003816) ALTv (test code = 25 U/L 5-35 1742-6) AST(SGOT) (test code = 31 U/L 13-40 3836355480) eGFR (test code = mL/min/1.73m2 2349027645) HIRA (test code = HIRA) Association of Glomerular Filtration Rate (GFR) and Staging of Kidney Disease* + --+ --+ ------+| GFR (mL/min/1.73 m2) ?| With Kidney Damage ?| ?Without Kidney Damage+ --------+ --------+ +| ?>90 ?| ?Stage one ?| ? Normal ?+ ---+ ---+ -------+| ?60-89 ?| ?Stage two ?| ? Decreased GFR ? + --+ --+ ------+| ?30-59 ?| ?Stage three ?| ? Stage three ? + --+ --+ ------+| ?15-29 ?| ?Stage four ? | ? Stage four ?+ ---+ ---+ -------+| ?<15 (or dialysis) ? ?| ?Stage five ? | ? Stage five ?+ ---+ ---+ -------+ *Each stage assumes the associated GFR level has been in effect for at least three months. ?Stages 1 to 5, with or without kidney disease, indicate chronic kidney disease. Notes: Determination of stages one and two (with eGFR >59mL/min/1.73 m2) requires estimation of kidney damage for at least three months as defined by structural or functional abnormalities of the kidney, manifested by either:Pathological abnormalities or Markers of kidney damage (including abnormalities in the composition of the blood or urine or abnormalities in imaging tests). Lab Interpretation Abnormal (test code = 90886-8) [facility] WITH [id number] 11:50:23 Test Item Value Reference Range Interpretation Comments WBC (test code = See_Comment H [Automated 1731-2) message] The sy stem which generated this result transmitted reference range : 4.30 - 11.10 10*3/?L. The reference range was not used to interpret this result as normal/abnormal . RBC (test code = See_Comment [Automated 174-8) message] The sy stem which generated this result transmitted reference range : 3.93 - 5.25 10*6/?L. The reference range was not used to interpret this result as normal/abnormal . HGB (test code = 15.0 g/dL 11.6-15.0 718-7) HCT (test code = 43.9 % 35.7-45.2 4544-3) MCV (test code = 92.2 fL 80.6-95.5 787-2) MCH (test code = 31.5 pg 25.9-32.8 785-6) MCHC (test code = 34.2 g/dL 31.6-35.1 786-4) RDW-SD (test code = 39.7 fL 39.0-49.9 21774-1) RDW-CV (test code = 11.7 % 12.0-15.5 L 788-0) PLT (test code = See_Comment [Automated 777-3) message] The sy stem which generated this result transmitted reference range : 166 - 358 10*3/ ?L. The reference r luis was not used to interpret this result as normal/abnormal . MPV (test code = 9.4 fL 9.5-12.9 L 56099-2) NRBC/100 WBC (test See_Comment [Automat ed code = 2558034810) message] The system which generated this result transmitted reference range : 0.0 - 10.0 /100 WBCs. The refer ence range was not u sed to interpret th is result as normal/abnormal . NRBC x10^3 (test code <0.01 See_Comment [Auto mated = 0811068905) message] The s ystem which generated this result transmitted reference range : 10*3/?L. The reference range was not used to interpret this result as normal/abnormal . GRAN MAT (NEUT) % 73.9 % (test code = 770-8) IMM GRAN % (test code 0.30 % = 0236668880) LYMPH % (test code = 19.2 % 736-9) MONO % (test code = 5.6 % 5905-5) EOS % (test code = 0.7 % 713-8) BASO % (test code = 0.3 % 706-2) GRAN MAT x10^3(ANC) 8.66 10*3/uL 1.88-7.09 H (test code = 1071750201) IMM GRAN x10^3 (test 0.04 10*3/uL 0.00-0.06 code = 6155630386) LYMPH x10^3 (test code 2.25 10*3/uL 1.32-3.29 = 731-0) MONO x10^3 (test code 0.65 10*3/uL 0.33-0.92 = 742-7) EOS x10^3 (test code = 0.08 10*3/uL 0.03-0.39 711-2) BASO x10^3 (test code 0.03 10*3/uL 0.01-0.07 = 704-7) Lab Interpretation Abnormal (test code = 39430-8) [facility]"
--- NOTE | 2023-03-03 11:31 | RAD REPORT ---
EXAM DESCRIPTION: RAD - Knee Left 2 View - 03/03/2023 10:58 am CLINICAL HISTORY: Post Op COMPARISON: No comparisons TECHNIQUE: Left knee, 2 views. FINDINGS: A left total knee arthroplasty has been performed. Hardware is in expected location. Skin christine are noted. IMPRESSION: Postoperative left knee with no unexpected finding.
[2023-03-03 11:40] VITALS: O2SAT 94
[2023-03-03 13:04] VITALS: BMI 31.4
[2023-03-03] MEDS: CEFAZOLIN SODIUM 2 GM in NA CHLORIDE 0.9% 100 ML IVPB SCH (17:22)
[2023-03-03] MEDS: MECLIZINE HCL 12.5 MG TAB PO SCH (18:08)
[2023-03-03] MEDS: gemfibroziL 600 MG TAB PO SCH (20:16)
[2023-03-03] MEDS: ONDANSETRON 4 MG/2 ML VIAL IV PRN (20:24)
--- NOTE | 2023-03-03 21:28 | P.OP ---
Preoperative diagnosis: left knee osteoarthritis Postoperative diagnosis: same Primary procedure: left total knee arthroplasty Anesthesia: general Estimated blood loss: 40 cc Specimen: left knee bone remnants Findings: see dictation Operative Technique: Indication For Procedure: Patient is an 82 year-old female presenting to my clinic with signs, symptoms and x-ray findings consistent with severe left knee osteoarthritis. I discussed with the patient at length risks and benefits associated with operative and nonoperative treatment. She had failed conservative treatment measures and had significant difficulties with ADLs secondary to her pain. We discussed operative treatment and elected to proceed with left total knee arthroplasty. She expressed understanding and elected to proceed with operative treatment. Description Of Procedure: After informed consent was obtained, the patient was identified in the preoperative holding area. The left lower extremity was marke d. The patient was then taken to the PACU where she underwent a left lower extremity adductor canal block performed by Anesthesia. She was then taken to the operating room, transferred to the operating table in supine fashion, and placed under general anesthesia. The left lower extremity was then prepped and draped in usual sterile fashion. A time-out was initiated. The correct patient and procedure were confirmed and identified. The patient did receive her preoperative prophylactic antibiotics. The left lower extremity was then exsanguinated and tourniquet was inflated to 300 mmHg. Approximately 15 cm longitudinal incision was made centered over the anterior aspect of the left knee. Dissection was then taken to the extensor mechanism and a medial parapatellar arthrotomy was performed. The patella was everted and dislocated laterally and the knee was flexed in the fat pad. Medial and lateral meniscus and ACL were all excised exposing the distal femur. Excess hypertrophic sy novium was also excised within the suprapatellar pouch. The patient had an MRI of her left knee preoperatively for surgical planning and creation of cutting blocks. The cutting block was then placed over the distal femur and pins were then placed. The distal femoral cutting block was then placed over the pins. An adal wing was then used to ensure proper depth cut and the distal femur was then cut. The chamfer cutting guide was then placed over the distal end of the femur. Anterior, posterior cuts as well as anterior and posterior chamfer cuts were then made again confirming proper depth of the cut using an Adal wing. Excess bone remnants were then sent to pathology for further evaluation. Next, attention was taken to the proximal tibia. A tibial jig and tibial cutting block was then placed on proximal aspect of the left tibia and locked into position. Pins were then placed and alignment guide was then used to confirm proper alignment of the cut and then coronal and sagittal planes. Once this was confirmed, the cutting jig was placed over the pins and the proximal tibia was cut. Sizing trays were then selected and size 10 mm spacer was used and there was good overall balance in flexion and extension. Next, the trial implants were then placed using the size 9 standard CR femur and a size E tibia and an 11 mm CR poly. There was overall good range of motion and good stability. The trial implants were then removed. The wound was then irrigated thoroughly with normal saline and the knee was then injected with 30 cc of 0.5% Marcaine both in the posterior capsule and medial and lateral gutters as well as quadriceps tendon and periosteum. The tibia was then punched. The femur was drilled. The cement was then prepared on the back table. Cement was then placed first on the tibial surface followed by size E tibia. Excess cement was removed with Diablo elevators. Size 7 standard CR femur was then placed on the distal femur after cement was placed on the distal femur. Excess cement was then removed and a size 11 mm CR trial poly was then placed. The knee was held in extension as the cement hardened. Undersurface of the patella was prepared debriding osteophytes using rongeurs as well as osteophytes.. Cement was placed on the undersurface of the patella after it was cut and a size 29 patella was placed. Once the cement was hardened, the knee was ranged, there was good overall stability both in flexion, extension and as well as stability with varus and valgus stresses. Trial poly was then removed and a size 11 mm CR poly was then placed and locked into position. The knee was then ranged again. There was good overall range of motion both for flexion and extension with good stability. The wound was then irrigated again thoroughly with normal saline using pulse lavage. Tourniquet was let down. Hemostasis was achieved using Bovie electrocautery. Extensor mechanism was then approximated using a #1 Vicryl both in interrupted and run clementina fashion. The fascia was then approximated using 0 Vicryl. Subcutaneous tissue was approximated with a 2-0 Vicryl. Skin was approximated using christine. Sterile dressings were applied. The patient was awakened and transferred to PACU in stable condition Complications: None Implants: Biomet Nato Persona 9 CR femur, E tibia, 29 patella, 11 CR femur Fluids & blood products: per anesthesia record; TT: 71 mins @ 300 mmHg Transferred to: Recovery Room Condition: Good
[2023-03-03] MEDS: HYDROCODONE/APAP 7.5/325 MG TAB PO PRN (22:42)
[2023-03-04] MEDS: CEFAZOLIN SODIUM 2 GM in NA CHLORIDE 0.9% 100 ML IVPB SCH ×2 (00:36→08:11)
[2023-03-04] MEDS: ENOXAPARIN 30 MG/0.3 ML SQ SCH ×2 (06:12→18:18)
[2023-03-04 06:33] LABS: Hematocrit 36.2 % (36.0-45.0)
[2023-03-04] MEDS: HYDROCODONE/APAP 7.5/325 MG TAB PO PRN ×3 (08:10→23:43)
[2023-03-04] MEDS: gemfibroziL 600 MG TAB PO SCH ×2 (08:10→20:07)
[2023-03-04] MEDS: VITAMIN D 1000 UNIT TAB PO SCH (08:11)
[2023-03-04] MEDS: CELECOXIB 100 MG CAPSULE PO SCH (08:11)
[2023-03-04] MEDS: ROSUVASTATIN 10 MG TAB PO SCH (08:13)
[2023-03-04] MEDS: CALCIUM CARBONATE 500 MG TAB PO SCH (09:00)
[2023-03-04] MEDS ORDERED: MECLIZINE HCL 12.5 MG TAB PO ONE (09:40)
[2023-03-04] MEDS: ONDANSETRON 4 MG/2 ML VIAL IV PRN (10:09)
[2023-03-04] MEDS ORDERED: DOCUSATE NA 100 MG CAP PO ONE (13:05)
--- NOTE | 2023-03-04 16:09 | P.PN ---
Subjective Date of Service: 03/04/23 Chief Complaint: Status post left total knee arthroplasty Patient reports some vertigo and dizziness making it difficult to get out of bed yesterday and this morning. Reports minimal pain with the left knee at this time. Physical Examination - Vital Signs Temperature: 99.0 F Blood Pressure: 108/57 Pulse: 64 Respirations: 16 Pulse Ox (%): 90 - Physical Exam General: Alert, In no apparent distress Musculoskeletal: Other (LLE: Dressing with minimal sanguinous drainage; neurovascular intact distally) - Studies Laboratory Data (last 24 hrs) 03/04/23 06:19 Hgb 12.8 D Hct 36.2 Assessment And Plan - Plan Angie is an 82-year-old female status post left total knee arthroplasty postop day #1 -Patient is having vertigo causing difficulty with mobilization; continue meclizine and Zofran as needed -Lovenox for DVT prophylaxis -Awaiting inpatient rehab evaluation and possible approval -Continue to work with physical therapy for improved mobilization for safe discharge as patient lives alone
[2023-03-04] MEDS: MECLIZINE HCL 12.5 MG TAB PO SCH (18:20)
[2023-03-05 04:38] VITALS: BP 132/55; TEMP 98.2
[2023-03-05 06:22] LABS: Hematocrit 34.6 % (36.0-45.0)
[2023-03-05] MEDS: HYDROCODONE/APAP 7.5/325 MG TAB PO PRN (06:23)
[2023-03-05] MEDS: ENOXAPARIN 30 MG/0.3 ML SQ SCH (06:23)
[2023-03-05] MEDS: CELECOXIB 100 MG CAPSULE PO SCH (08:04)
[2023-03-05] MEDS: VITAMIN D 1000 UNIT TAB PO SCH (08:05)
[2023-03-05] MEDS: ROSUVASTATIN 10 MG TAB PO SCH (08:05)
[2023-03-05] MEDS: CALCIUM CARBONATE 500 MG TAB PO SCH (08:06)
--- NOTE | 2023-03-05 08:10 | P.PN ---
Subjective Date of Service: 03/05/23 Chief Complaint: Status post left total knee arthroplasty Subjective: Ambulating, Improving, Working w/ PT Vertigo improving. Pain controlled. Physical Examination - Vital Signs Temperature: 98.2 F Blood Pressure: 132/55 Pulse: 69 Respirations: 18 Pulse Ox (%): 98 - Physical Exam General: Alert, In no apparent distress Musculoskeletal: Other (LLE: dressing c/d/i; +EHL/FHL/GSC/TA; sensation grossly intact over dorsal and plantar foot) - Studies Laboratory Data (last 24 hrs) 03/05/23 05:54 Hgb 11.9 L Hct 34.6 L Assessment And Plan - Plan Angie is an 82-year-old female status post left total knee arthroplasty postop day #2 -Vertigo improving; continue meclizine and Zofran as needed -Lovenox for DVT prophylaxis -Awaiting inpatient rehab evaluation and possible approval -Continue to work with physical therapy for improved mobilization for safe discharge as patient lives alone
[2023-03-05] MEDS: gemfibroziL 600 MG TAB PO SCH (08:11)
== END 2023-03-05 11:41 | disposition home health service (06) ==
LOC: OR 06:02 → 4TH 11:23
PROVIDERS: ADMIT Orthopaedic Surgery Sports Medicine; ATTEND Orthopaedic Surgery Sports Medicine
PROC: 0SRD069 Replacement of Left Knee Joint with Oxidized Zirconium on Polyethylene Synthetic Substitute, Cemented, Open Approach (ICD-10-PCS; principal; 2023-03-03 07:30)
DX: M17.12 Unilateral primary osteoarthritis, left knee (principal); R42 Dizziness and giddiness
CPT/HCPCS: 85025 ×2; 81001; 80048 ×2; 36415 ×5; 85610 ×2; 88304; 88311; 85730 ×2; 85018 ×3; 85014 ×3; 71046; 73560; 97110 ×4; 97116 ×2; 97139; 97161; 97530; 94010 ×2; 27447; C1776; J8597 ×3; J3475 ×2; J2704; J1100; J0171; J2001 ×3; J1650 ×3; J3010; J1170; J2405 ×3; J7120 ×2; G0378; G0379; J2250